=== PATIENT | female | born 1995 | race Caucasian/White ===

== ENCOUNTER 2018-11-23 21:48 | Inpatient (IN) | payer OTHER ==
[2018-11-24 01:05] LABS: Anisocytosis Slight; Basophils % (A) 1 %; Eosinophils % (A) 1 %; HCT 35.8 % (34.0-46.0); HGB 11.9 gm/dL (11.4-16.0); Lymphocytes # (A) 2.2 k/uL (1.0-4.8); Lymphocytes % (A) 31 %; MCH 28.1 pg (25.0-35.0); MCHC 33.2 g/dL (31.0-37.0); MCV 84.6 fL (80.0-100.0); Mean Platelet Volume 8.1; Monocytes # (A) 0.4 k/uL (0-1.0); Monocytes % (A) 6 %; Neutrophils # (A) 4.2 k/uL (1.3-7.7); Neutrophils % (A) 59 %; Platelet Count 268 k/uL (150-450); RBC 4.23 m/uL (3.80-5.40); RDW 16.4 % (11.5-15.5)
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
[2018-11-24 01:18] LABS: ALT 28 U/L (9-52); AST 18 U/L (14-36); Acetaminophen <10.0 ug/mL; Albumin 4.8 g/dL (3.5-5.0); Alcohol <10 mg/dL; Alkaline Phosphatase 75 U/L (38-126); Anion Gap 12 mmol/L; Blood Urea Nitrogen 15 mg/dL (7-17); Calcium 10.3 mg/dL (8.4-10.2); Carbon Dioxide 22 mmol/L (22-30); Chloride 107 mmol/L (98-107); Glucose 87 mg/dL (74-99); Potassium 4.1 mmol/L (3.5-5.1); Salicylate <1.0 mg/dL; Sodium 141 mmol/L (137-145); Total Bilirubin 0.7 mg/dL (0.2-1.3); Total Protein 8.1 g/dL (6.3-8.2)
[2018-11-24 01:31] LABS: Amphetamine Screen,Urine Not Detected (NotDetected); Barbiturate Screen,Urine Not Detected (NotDetected); Benzodiazepines Screen,Urine Detected (NotDetected); Cocaine Screen,Urine Not Detected (NotDetected); Methadone Screen, Urine Not Detected (NotDetected); Opiate Screen,Urine Not Detected (NotDetected); Oxycodone Screen, Urine Not Detected (NotDetected); Phencyclidine Screen,Urine Not Detected (NotDetected); Tricyclic Antidepressant,Urine Not Detected (NotDetected); Urn Cannabinoid Scrn Detected (NotDetected)
[2018-11-24] MEDS ORDERED: MAGNESIUM HYDROXIDE 2,400 MG/10 ML CUP PO PRN (03:54)
[2018-11-24] MEDS ORDERED: ACETAMINOPHEN TAB 325 MG TAB PO PRN (03:54)
[2018-11-24] MEDS ORDERED: MAG HYDROX/AL HYDROX/SIMETH 30 ML CUP PO PRN (03:54)
[2018-11-24] MEDS ORDERED: ZIPRASIDONE 20 MG VIAL IM PRN (03:54)
[2018-11-24] MEDS: LORazepam 1 MG TAB PO PRN ×3 (04:36→21:45)
[2018-11-24] MEDS: NICOTINE 14MG/24HR PATCH TRANSDERM SCH (08:37)
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
[2018-11-24] MEDS: SERTRALINE 50 MG TAB PO SCH (11:27)
--- NOTE | 2018-11-24 16:16 | P.MDCNMH ---
History of Present Illness H&P Date: 11/24/18 Chief Complaint: Medical management 23-year-old female with PMH of kidney stones presents the ED for anxiety, depression and suicidal ideation. We have been consulted for medical management of this patient. Patient currently has no complaints. She does report a history of right flank pain. Patient reports undergoing CT imaging at [facility], diagnosed with kidney stones. Patient reports that she was given an apparatus to collect her stone but has not passed the stone still over the past 2 years. Patient reports that the pain gets aggravated with her menses. Her right flank pain is associated with nausea and vomiting. Patient reports heavy menses. Menses is regular, occur monthly but last 6-7 days changing pads every 45 minutes. Patient denies any headaches, lower extremity edema, current nausea or vomiting , fever or chills, chest pain, shortness of breath, palpitations, changes in urination or bowel habits. No changes in appetite or weight. No dizziness, numbness, tingling, weakness of the extremities. Patient reports smoking half pack of cigarettes daily for the past 6 years. She denies any alcohol use. She admits to smoking marijuana occasionally. Review of Systems All systems: negative Past Medical History Past Medical History: No Reported History History of Any Multi-Drug Resistant Organisms: None Reported Past Surgical History: No Surgical Hx Reported Past Psychological History: No Psychological Hx Reported Smoking Status: Current every day smoker Past Alcohol Use History: Occasional Past Drug Use History: Marijuana Medications and Allergies Home Medications Medication Instructions Recorded Confirmed Type Ibuprofen [Motrin] 600 mg PO Q6HR PRN #20 tab 06/24/14 Rx Promethaz-Cod 6.25-10 mg/5 ml 5 ml PO Q4HR PRN #1 bottle 06/24/14 Rx [Phenergan with Codeine] Allergies Allergy/AdvReac Type Severity Reaction Status Date / Time Penicillins Allergy Unknown Verified 06/24/14 13:52 Physical Exam Vitals: Vital Signs Temp Pulse Resp BP Pulse Ox 11/24/18 04:08 98 F 90 18 125/89 100 11/23/18 22:01 98.1 F 116 H 20 133/82 100 General: [non toxic], [no distress], [appears at stated age] Derm: [warm], [dry] Head: [atraumatic], [normocephalic], [symmetric] Eyes: [EOMI], [no lid lag], [anicteric sclera] Mouth: [no lip lesion], [mucus membranes moist] Cardiovascular: [S1S2 reg], [no murmurs], [positive posterior tibial pulse bilateral] Lungs: [CTA bilateral], [no rhonchi, no rales] , [no accessory muscle use] Abdominal: [soft], [ nontender to palpation], [no guarding], [no appreciable organomegaly] Ext: [no gross muscle atrophy], [no edema], [no contractures] Neuro: [ CN II-XI grossly intact], [no focal neuro deficits] Psych: [Alert], [oriented], [appropriate affect] Cranial Nerve Examination - Cranial Nerves Cranial Nerve II- Optic: Intact Cranial Nerve III- Oculomotor: Intact Cranial Nerve IV- Trochlear: Intact Cranial Nerve V- Trigeminal: Intact Cranial Nerve - Abducens: Intact Cranial Nerve VII- Facial: Intact Cranial Nerve VIII- Auditory: Intact Cranial Nerve IX- Glossopharyngeal: Intact Cranial Nerve X- Vagus: Intact Cranial Nerve XI- Accessory: Intact Cranial Nerve XII- Hypoglossal: Intact Results CBC & Chem 7: 11/24/18 00:52 11/24/18 00:52 Labs: Abnormal Lab Results - Last 24 Hours (Table) 11/24/18 11/24/18 11/24/18 Range/Units 00:52 00:52 01:00 RDW 16.4 H (11.5-15.5) % Calcium 10.3 H (8.4-10.2) mg/dL U Benzodiazepines Scrn Detected H (NotDetected) U Marijuana (THC) Screen Detected H (NotDetected) Assessment and Plan Assessment: Assessment and Plan 1. History of nephrolithiasis 2. Smoker 3. Anxiety, depression, suicidal ideation 1. Patient reports history of nephrolithiasis. Encourage by mouth hydration. Tylenol as needed for pain. Will continue to monitor clinically as patient is asymptomatic. 2. Smokes one half pack per day for the past 6 years. Continue nicotine 14 mg per 24 hour transdermal patch. 3. Management as per psychiatry. Thank you for the consult. Please call with any additional questions.
[2018-11-24 16:57] LABS: Hemoglobin A1C 5.2 % (4.0-6.0)
[2018-11-25] MEDS: NICOTINE 14MG/24HR PATCH TRANSDERM SCH (08:00)
[2018-11-25] MEDS: SERTRALINE 50 MG TAB PO SCH (08:00)
[2018-11-25] MEDS: LORazepam 1 MG TAB PO PRN ×2 (08:00→15:10)
--- NOTE | 2018-11-25 09:55 | P.PN ---
Progress Note - Text Interval history: The patient is found in group she follows me to an interview room. She reports that her mood is somewhat improved. She had a supportive visit from her father. He had stated that depression does run in his side of the family. She is unaware of any medication that he may have used or any other family members may have used successfully. She had a visit from 2 other friends. She has been making an effort to attend groups. She slept throughout the night last evening but did use an Ativan. Appetite is still been decreased she did not eat dinner last night and didn't eat breakfast but does plan to eat lunch. We reviewed the Zoloft her questions were answered. She had several questions regarding outpatient care which were addressed. Mental status exam: The patient is alert she is dressed in her own clothing hygiene grooming are adequate. Eye contact is appropriate speech is fluent spontaneous nonpressured. She reports a continued depressed and anxious mood but feels it's better than yesterday. She does still have some hopelessness thinking but feels safe here in the hospital. She reports no homicidal ideation intent or plan. She is reporting no auditory or visual hallucinations or any specific delusions. She does not appear hypomanic or manic. Thought process is linear she demonstrates no tangential thinking loose associations or flight of ideas. Insight and judgment slowly improving. She demonstrates no verbal or physical aggressiveness. Plan: The patient will continue on the Zoloft as written we will likely titrate this further during the course of her hospitalization. We will continue looking for opportunities to provide some cognitive restructuring and coping skill development. She is participating in groups we will encourage that continued activity. Vital signs reviewed it appears she is experiencing some tachycardia. This may be related to her nicotine patch we will reduce the dose to 7 mg daily as she only smokes half a pack a day.
[2018-11-25] MEDS: NICOTINE 7MG/24HR PATCH TRANSDERM SCH (13:43)
[2018-11-26] MEDS: LORazepam 1 MG TAB PO PRN ×2 (08:44→16:10)
[2018-11-26] MEDS: NICOTINE 7MG/24HR PATCH TRANSDERM SCH (09:57)
[2018-11-26] MEDS: SERTRALINE 50 MG TAB PO SCH (09:58)
--- NOTE | 2018-11-26 10:59 | P.PN ---
Progress Note - Text Interval history: The patient is found in group she follows me to an interview room. She reports her mood is okay. She has concern regarding her tachycardia. She did have an EKG last evening which revealed a heart rate of 96 with normal sinus rhythm. She states that her father shared with her that they do have hypertension and possibly tachycardia in the family with her grandmother having atrial fibrillation. The patient has been hydrating. Discussed that possibly the nicotine patch could be contributing and we will discontinue that. She continues to comply with group. We reviewed the Zoloft her questions were answered. She describes having some difficulty sleeping at night and we discussed medication options for insomnia. Mental status exam: The patient is alert she is pleasant and cooperative. She is dressed in her own clothing. Eye contact is appropriate speech is fluent spontaneous nonpressured. She endorses a depressed mood with some anxiety. She reports some hopeless thoughts but feels safe here in the hospital. She reports no homicidal ideation intent or plan. She endorses no auditory or visual hallucinations or any specific delusions. She demonstrates no verbal or physical aggressiveness. She is cooperative throughout the interaction she maintains a constricted affect. Insight and judgment limited. Plan: The patient will continue on the Zoloft we will add melatonin for sleep. We will discontinue the nicotine patch in case it is contributing to tachycardia. The internal medicine group we will evaluate the patient again and we will await any further recommendations. We will monitor her for safety. She has a family meeting scheduled for Thursday depending on her clinical status she may be appropriate for discharge at that time.
[2018-11-26 11:28] LABS: ALT 25 U/L (9-52); AST 21 U/L (14-36); Albumin 5.1 g/dL (3.5-5.0); Alkaline Phosphatase 84 U/L (38-126); Anion Gap 12 mmol/L; Bilirubin, Delta 0.3 mg/dL (0.0-0.2); Bilirubin,Unconjugated 0.4 mg/dL (0.0-1.1); Blood Urea Nitrogen 8 mg/dL (7-17); Calcium 10.7 mg/dL (8.4-10.2); Carbon Dioxide 22 mmol/L (22-30); Chloride 106 mmol/L (98-107); Cholesterol 154 mg/dL (<200); Glucose 111 mg/dL (74-99); HDL Cholesterol 48 mg/dL (40-60); LDL Cholesterol,Calculated 86 mg/dL (0-99); Potassium 4.1 mmol/L (3.5-5.1); Sodium 140 mmol/L (137-145); Total Bilirubin 0.7 mg/dL (0.2-1.3); Total Protein 8.7 g/dL (6.3-8.2); Triglycerides 101 mg/dL (<150)
[2018-11-26] MEDS: MELATONIN 5 MG TABLET PO SCH (21:43)
[2018-11-27 07:09] VITALS: RESP 16
[2018-11-27] MEDS: LORazepam 1 MG TAB PO PRN ×2 (07:36→16:21)
--- NOTE | 2018-11-27 08:55 | P.PN ---
Progress Note - Text Interval history: The patient is found in the hallway she follows me to an interview room. She indicates having some trouble sleeping last night. She is willing to try the melatonin further. Appetite is improving. She expects her father will visit again this evening and feels those are supportive visits. She is looking forward to her family meeting on Thursday. She has been attending groups. We reviewed her psychotropic medication. She does continue to have tachycardia. This was present in the emergency room even prior to starting any psychotropic medication. She reports no chest pain dizziness etc. Mental status exam: The patient is alert she is dressed in clothing hygiene grooming are adequate. Speech is fluent spontaneous nonpressured. She reports her mood is slowly improving. She feels safe here in the hospital. She denies any thoughts of harming others she denies having any auditory or visual hallucinations. She demonstrates no tangential thinking loose associations or flight of ideas. She does not appear hypomanic or manic. Insight and judgment improving. She demonstrates no verbal or physical aggressiveness. Affect is mildly brighter. Plan: The patient is clinically stabilizing. We will continue her medication as written. We will monitor her vital signs. If she continues to improve clinically expects she'll be appropriate for discharge Thursday.
[2018-11-27] MEDS: SERTRALINE 50 MG TAB PO SCH (09:02)
[2018-11-27] MEDS: NICOTINE 7MG/24HR PATCH TRANSDERM SCH (09:03)
--- NOTE | 2018-11-27 16:52 | P.PN ---
Subjective Progress Note Date: 11/27/18 Principal diagnosis: Tachycardia Patient was seen and examined today. Reports from nursing saying that patient is persistently tachycardic. Patient reports that this issue of her heart rate is chronic and has been "going on for many years". When asked to describe her symptoms she feels that as if "my heart is coming out of my chest". Patient reports that her symptoms are worse when she is emotionally upset or when she goes from is laying to a standing position. Patient does endorse some lightheadedness when standing up occasionally. Patient reports drinking 1 cup of coffee daily previously. Patient states that she takes about 2:30 milligrams Adderall pills monthly. Patient reports drinking alcohol socially. She does smoke one half packs of cigarettes daily. She denies any fever or chills. She denies any weight loss, diarrhea, any changes in hair skin and nails her voice. She denies any fatigue. She denies any history of benzodiazepine use. She denies any chest pain. She does report that her grandmother on her father's side suffers from atrial fibrillation, hypertension and tachycardia. Patient does not know her mother to well. Objective - Vital Signs Vital signs: Vital Signs Temp 98.8 F 11/27/18 06:47 Pulse 124 H 11/27/18 16:21 Resp 16 11/27/18 06:47 BP 139/96 11/27/18 16:21 Pulse Ox 100 11/25/18 16:14 - Exam General: [non toxic], [no distress], [appears at stated age] Derm: [warm], [dry] Head: [atraumatic], [normocephalic], [symmetric] Eyes: [EOMI], [no lid lag], [anicteric sclera] Mouth: [no lip lesion], [mucus membranes moist] Cardiovascular: [S1S2 reg], [tachycardia], [positive posterior tibial pulse bilateral], Lungs: [CTA bilateral], [no rhonchi, no rales] , [no accessory muscle use] Abdominal: [soft], [ nontender to palpation], [no guarding], [no appreciable organomegaly] Ext: [no gross muscle atrophy], [no edema], [no contractures] Neuro: [no focal neuro deficits] Psych: [Alert], [oriented], [appropriate affect] - Labs CBC & Chem 7: 11/24/18 00:52 11/26/18 10:54 Assessment and Plan Assessment: Assessment and Plan 1. Tachycardia 2. History of nephrolithiasis 3. Smoker 4. Anxiety, depression, suicidal ideation 1. Sinus tachycardia confirmed on EKG without QT prolongation. Likely secondary to anxiety, nicotine withdrawal and/or orthostasis. Would recommend that Ativan be scheduled as it appears that it brings down her heart rate when given. TSH is within normal limits. Patient does not have anemia on CBC. Will check orthostats. Patient encouraged hydration by mouth. 2. Patient reports history of nephrolithiasis. Encourage by mouth hydration. Tylenol as needed for pain. Will continue to monitor clinically as patient is asymptomatic. 3. Smokes one half pack per day for the past 6 years. Continue nicotine 14 mg per 24 hour transdermal patch. 4. Management as per psychiatry. Patient has been persistently tachycardic since admission. She reports history of tachycardia ongoing for many years. She has never been evaluated in the outpatient setting. She has recently began sertraline which can prolong QTC, not seen on EKG. Appears her heart rate decreases when Ativan is given, probable component of anxiety, would recommend scheduling Ativan. If orthostats negative, can consider low-dose beta elizabeth and outpatient workup. We will continue to follow.
[2018-11-27] MEDS: MELATONIN 5 MG TABLET PO SCH (21:02)
[2018-11-28] MEDS: NICOTINE 7MG/24HR PATCH TRANSDERM SCH (08:26)
[2018-11-28] MEDS: LORazepam 1 MG TAB PO PRN ×3 (08:26→16:18)
[2018-11-28] MEDS: SERTRALINE 50 MG TAB PO SCH (08:28)
--- NOTE | 2018-11-28 13:41 | P.PN ---
Progress Note - Text Interval history: The patient is found in the dining room she follows me to an interview room. She states that her mood is improving. She had a supportive visit from her father yesterday. She anticipates her roommate will visit hussein. She has no questions or concerns regarding current medication. Heart rate seems to be improving. She was seen by internal medicine for evaluation and that note was reviewed. Mental status exam: The patient is alert she is dressed in her own clothing she presents with adequate hygiene grooming. Eye contact is good speech is fluent spontaneous nonpressured. She denies having any suicidal or homicidal ideation intent or plan. She demonstrates no tangential thinking loose associations or flight of ideas. She does not appear hypomanic or manic. She demonstrates no verbal or physical aggressiveness. Affect is more expressive. She describes future oriented thinking. Plan: The patient will continue on her current medication. We will monitor her for safety. She is asking that we discontinue the melatonin as it provides no benefit. I expect she will be appropriate for discharge tomorrow. We will continue to monitor her vitals.
--- NOTE | 2018-11-28 17:08 | P.PN ---
Progress Note - Text Progress Note Date: 11/28/18 Patient's pulse is morning is been in the 80s. On recheck this afternoon around 4 PM, seen in the 120s which went down to 110, 20 minutes after Ativan. Patient asymptomatic throughout her admission. I believe that there is a big component of anxiety related to her tachycardia, again would recommend scheduling Ativan. She does report a history of tachycardia in her grandmother and tachycardia in herself that has been ongoing for many years. Regardless, patient would need a thorough evaluation. Discussed with nursing, they will monitor her vitals more closely today and tomorrow as there is plans to discharge her tomorrow. If heart rate less than 110, patient can follow-up in the outpatient setting within 1-2 days and follow-up with her PCP with a referral for echocardiogram to evaluate for valvular lesions. She will also need urine metanephrines. I recommend that heart rate lowering medication not be started right now until evaluation is complete.
[2018-11-29 06:57] VITALS: BP 118/72; PULSE 97; TEMP 98.4
[2018-11-29] MEDS: NICOTINE 7MG/24HR PATCH TRANSDERM SCH (08:06)
[2018-11-29] MEDS: SERTRALINE 50 MG TAB PO SCH (08:06)
[2018-11-29] MEDS: LORazepam 1 MG TAB PO PRN (08:07)
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
[2018-11-30] MEDS ORDERED: SERTRALINE 100 MG TAB PO SCH (09:00)
== END 2018-11-29 11:53 | disposition home or self-care (01) | DRG 885 ==
LOC: EC 21:48 → 3MHU 11-24 03:50
PROVIDERS: ADMIT Psychiatry & Neurology Psychiatry; ATTEND Psychiatry & Neurology Psychiatry
DX: F33.2 Major depressive disorder, recurrent severe without psychotic features (principal); R45.851 Suicidal ideations; F41.0 Panic disorder [episodic paroxysmal anxiety]; F17.210 Nicotine dependence, cigarettes, uncomplicated; Z71.6 Tobacco abuse counseling; Z79.899 Other long term (current) drug therapy; Z88.0 Allergy status to penicillin; F40.10 Social phobia, unspecified; Z81.8 Family history of other mental and behavioral disorders; Z81.1 Family history of alcohol abuse and dependence; Z82.49 Family history of ischemic heart disease and other diseases of the circulatory system
CPT/HCPCS: 36415; 80048; 80053; 80061; 80076; 80306; 80320; 81025; 82075; 83036; 83520; 84443; 85025; 93005; 99284

== ENCOUNTER 2019-05-25 22:47 | Emergency (ER) | payer MEDICAID, OTHER ==
[2019-05-25 23:06] VITALS: BP 133/92; PULSE 89; RESP 18; TEMP 97.9
[2019-05-26] MEDS ORDERED: KETOROLAC 60 MG/2 ML VIAL IM STA (00:07)
[2019-05-26] MEDS ORDERED: CLINDAMYCIN 150 MG CAP PO STA (00:07)
--- NOTE | 2019-05-26 00:15 | ED ---
ENT HPI - General Chief complaint: Dental/Oral Stated complaint: Dental Pain Time Seen by Provider: 05/25/19 23:12 Source: patient Mode of arrival: ambulatory Limitations: no limitations - History of Present Illness Initial comments: The patient is a 24-year-old female who presents emergency department with complaint of left mandibular and maxilla jaw pain. She states that the pain started last night. She does have multiple dental caries and also believes that she is getting in her wisdom teeth. she states that she has been putting ice packs to the left side of her face with improvement. She's also been taking Motrin at home. she denies any facial swelling. No tongue swelling or difficulty swallowing. She denies any neck pain or stiffness. denies poor taste in her mouth. No fevers or chills. no chest pain or shortness of breath. denies any ear pain or sore throat. There are no other alleviating, precipitating or modifying factors - Related Data Previous Rx's Medication Instructions Recorded Nicotine 7Mg/24Hr Patch [Habitrol] 1 patch TRANSDERM DAILY #10 patch 11/29/18 Sertraline [Zoloft] 100 mg PO DAILY #30 tab 11/29/18 Acetaminophen-Codeine 300-30mg 1 tab PO Q6HR PRN #12 tablet 05/26/19 [Tylenol #3] Clindamycin [Cleocin] 450 mg PO Q8HR #56 capsule 05/26/19 Allergies Allergy/AdvReac Type Severity Reaction Status Date / Time Penicillins Allergy Unknown Verified 05/25/19 23:44 Review of Systems ROS Statement: Those systems with pertinent positive or pertinent negative responses have been documented in the HPI. ROS Other: All systems not noted in ROS Statement are negative. Past Medical History Past Medical History: No Reported History History of Any Multi-Drug Resistant Organisms: None Reported Past Surgical History: No Surgical Hx Reported Past Psychological History: Depression, Panic Disorder Smoking Status: Current every day smoker Past Alcohol Use History: Occasional Past Drug Use History: Marijuana General Exam Limitations: no limitations General appearance: alert, in no apparent distress Head exam: Present: atraumatic, normocephalic Eye exam: Present: PERRL, EOMI ENT exam: Present: mucous membranes moist, TM's normal bilaterally, normal external ear exam, other (tooth 16 and 17 have yet to erupt through the gum cai rface however there is tenderness over their location. The patient also has tenderness to percussion of tooth 15) Course Vital Signs 05/25/19 23:04 Temperature 97.9 F Pulse Rate 89 Respiratory 18 Rate Blood Pressure 133/92 O2 Sat by Pulse 100 Oximetry Medical Decision Making - Medical Decision Making Upon arrival the patient is placed into room 20. a thorough history and physical exam is performed. Evaluation of the patient's mouth reveals no dental abscess. The patient does have multiple dental caries. She also has several fillings. Evaluation of the patient's teeth reveals that she has a possible fracture and the filling of the patient's on the left upper maxilla. She also has tenderness to palpation of the gums posterior to her molars on the left mandible. There is no tongue swelling or oral swelling. Floor of mouth is soft. No brawny induration of the neck. No signs of Santy angina. the patient denies possibility been . I did provide the patient was 15 mg of Toradol. I did recommend antibiotic treatment. The patient was given a dose of clindamycin. She does have an appointment for follow-up with her dentist tomorrow at 2 PM. Because of this I will provide the patient with a course of clindamycin. She will also be given a prescription for Tylenol 3's. Side effect profile discuss with the patient's. She does sign an opiate start talking form. The patient reports that she is on parole and therefore she is given discharge instructions stating that she is getting these medications. She is only take the medications as needed. There does not appear to be in identifiable abscess that needs to be drained. The patient has any new or worsening symptoms she should return to the emergency room. Patient was then discharged home in stable condition. Disposition Clinical Impression: Dental caries, Acute pulpitis, Toothache Disposition: HOME SELF-CARE Condition: Stable Instructions (If sedation given, give patient instructions): Toothache (ED) Additional Instructions: Please follow-up with your dentist appointment tomorrow. Return to the ED for any new or worsening symptoms. the patient has been prescribed an opiate pain medication for a temporary purpose. Prescriptions: Clindamycin [Cleocin] 450 mg PO Q8HR #56 capsule Acetaminophen-Codeine 300-30mg [Tylenol #3] 1 tab PO Q6HR PRN #12 tablet PRN Reason: pain Is patient prescribed a controlled substance at d/c from ED?: Yes When asked, does pt state using other controlled substances?: No If prescribed controlled substance>3 days was MAPS reviewed?: Prescribed <3 Days If opioid is for acute pain is fill amount 7 days or less?: Yes If Rx opioid, was Start Talking consent form obtained?: Yes Referrals: None,Stated [Primary Care Provider] - 1-2 days Time of Disposition: 00:15
== END 2019-05-26 00:30 | disposition home or self-care (01) ==
LOC: EC 22:47
DX: K02.9 Dental caries, unspecified (principal); K04.01 Reversible pulpitis; F17.200 Nicotine dependence, unspecified, uncomplicated; Z88.0 Allergy status to penicillin
CPT/HCPCS: 99282; 96372; J1885